=== PATIENT | female | born 1990 | race African-American/Black ===

== ENCOUNTER 2019-02-04 16:14 | Emergency (ER) | payer MEDICAID ==
[~2019-02-04] VITALS: Ht 157.5 cm; Wt 61.0 kg
[2019-02-04 16:22] VITALS: BP 119/68
== END 2019-02-04 18:54 | disposition left against medical advice (07) ==
LOC: ER 16:14
DX: Z53.21 Procedure and treatment not carried out due to patient leaving prior to being seen by health care provider (principal)